=== PATIENT | female | born 1980 | race Caucasian/White ===

== ENCOUNTER → 2018-03-13 09:09 | Outpatient (CLI) | payer OTHER, SELFPAY ==
[2015-03-09 11:20] VITALS: BMI 21.7
[2018-03-13 10:27] LABS: Absolute Lymphocyte Count 1.48 X10^3/ul (0.83-4.51); Absolute Neutrophil Count 3.4 X10^3/uL (2.0-7.7); Basophil# 0.04 X10^3/uL; Basophil% 0.7 % (0-1); Eosinophil# 0.16 X10^3/uL; Eosinophils% 2.9 % (0-5); Hematocrit 41.1 % (37-47); Hemoglobin 13.8 g/dl (12.0-15.0); Lymphocyte # 1.48 X10^3/ul (4.0); Lymphocyte % 26.4 % (19-41); Mean Corp Hgb Conc 33.6 g/gl (32-36); Mean Corpuscular Hgb 29.9 pg (27.0-32.0); Mean Corpuscular Volume 89.2 fL (81-99); Mean Platelet Vol. 9.8 fl (6.2-12.0); Monocyte# 0.51 X10^3/uL; Monocyte% 9.1 % (0-10); Neutrophil # 3.41 X10^3/uL (2.7-7.7); Neutrophil % 60.7 % (47-70); POSITIVE COUNT NO; POSITIVE DIFFERENTIAL NO; POSITIVE MORPHOLOGY NO; Platelet Count 214 K/mm3 (150-450); RBC Distribution Width CV 12.4 % (11.6-14.6); RBC Distribution Width SD 39.7 fl (35.1-43.9); Red Blood Count 4.61 M/mm3 (4.2-5.4); White Blood Count 5.6 K/mm3 (4.4-11.0)
[2018-03-13 11:07] LABS: Anion Gap 11 (5-15); BUN 11 mg/dL (7-18); BUN/Creat Ratio 14.3 RATIO (10-20); Calcium,Total 8.8 mg/dL (8.5-10.1); Chloride 107 mmol/L (98-107); Cholesterol 141 mg/dL (200); Creatinine, Serum 0.77 mg/dL (0.55-1.02); EST Glomerular Filtration Rate 89 mL/min (>60); Est Glom Filt Rate - Afr Amer 108 mL/min (>60); Glucose 81 mg/dL (74-106); High Density Lipoprotein 57 mg/dL; Potassium 4.1 mmol/L (3.5-5.1); Sodium Level 142 mmol/L (136-145); Thyroid Stim Hormone (TSH) 1.19 uIU/mL (0.358-3.74); Triglycerides 84 mg/dL; Very Low Density Lipoprotein 17 mg/dL (5-40)
== END ==
PROVIDERS: Family Provider Family Medicine; PCP Family Medicine; Visit Provider Family Medicine
DX: R00.2 Palpitations (principal)
CPT/HCPCS: 36415; 80048; 80061; 84443; 85025

== ENCOUNTER → 2018-03-28 07:53 | Outpatient (CLI) | payer OTHER, SELFPAY ==
--- NOTE | 2018-03-28 07:59 | ECHOD_ITS ---
Reason For Study: INTERMITTENT PALPITATIONS Procedure This was a 2D Doppler, Color Flow transthoracic echocardiogram. The study was technically difficult. Exam performed in department. Left Ventricle Normal LV size. Left ventricular systolic function is normal. The estimated ejection fraction is 55 %. No evidence for diastolic dysfunction. No regional wall motion abnormalities noted. Right Ventricle Normal RV size. Normal systolic function. Atria Normal left atrium. Normal right atrium. No doppler evidence for ASD. Mitral Valve There is no mitral annular calcification. Normal mitral valve. Trivial mitral valve insufficiency. Tricuspid Valve Normal tricuspid valve. Trivial tricuspid valve insufficiency. Right ventricular systolic pressure estimated to be 25 mmHg. Aortic Valve The aortic valve leaflets are not well visualized. Based upon the 2D echocardiographic images obtain there appears to be mild diffuse thickening. Trivial aortic valve insufficiency. Pulmonic Valve The pulmonic valve is not well visualized. Great Vessels Normal sized aortic root. Pericardium/Pleural No pericardial effusion. MMode/2D Measurements & Calculations LVIDd: 4.7 cm IVSd: 0.75 cm Ao root diam: 2.7 cm LVIDs: 3.6 cm LVPWd: 0.87 cm RVDd: 2.6 cm FS: 23.9 % LAV(MOD-bp): 42.9 ml LA A4 area: 16.0 cm2 LA dimension(2D): 2.8 cm LAV(MOD-bp) Indexed: 24.4 ml/m2 LAV(MOD-sp2): 44.5 ml LAV(MOD-sp4): 40.0 ml RA A4 area: 14.0 cm2 Doppler Measurements & Calculations MV E max michael: 75.9 cm/sec Lat Peak E' Michael: 13.6 cm/sec Med Peak E' Michael: 10.9 cm/sec MV A max michael: 55.4 cm/sec E/E' lat: 5.6 E/E' med: 7.0 MV E/A: 1.4 Ao V2 max: 139.9 cm/sec AI max michael: 448.4 cm/sec LV V1 max: 119.7 cm/sec Ao max P.8 mmHg AI max P.4 mmHg LV V1 max P.7 mmHg AI dec slope: 224.5 cm/sec2 AI P1/2t: 584.9 msec PA V2 max: 91.0 cm/sec TR max michael: 236.4 cm/sec TR max P.5 mmHg Interpretation Summary Left ventricular systolic function is normal. The estimated ejection fraction is 55 %. Trivial mitral valve insufficiency. Trivial tricuspid valve insufficiency. The aortic valve leaflets are not well visualized. Based upon the 2D echocardiographic images obtain there appears to be mild diffuse thickening. Right ventricular systolic pressure estimated to be 25 mmHg. No evidence for diastolic dysfunction. Ordering Physician: Brady Freedman Referring Physician: Brady Freedman Performed By: Roshni Epps, KRISTINA, RVT
== END ==
PROVIDERS: Family Provider Family Medicine; PCP Family Medicine; Referring Provider Family Medicine; Visit Provider Family Medicine
DX: R00.2 Palpitations (principal)
CPT/HCPCS: 93306

== ENCOUNTER → 2018-07-31 09:55 | Outpatient (CLI) | payer OTHER, SELFPAY ==
[2015-03-09 11:20] VITALS: BMI 21.7
[2018-08-01 15:57] LABS: HPV Reflexed? NOT INDICATED
== END ==
PROVIDERS: Family Provider Family Medicine; PCP Family Medicine; Visit Provider Obstetrics & Gynecology
DX: Z12.4 Encounter for screening for malignant neoplasm of cervix (principal)
CPT/HCPCS: 88175; G0145

== ENCOUNTER → 2019-01-08 09:02 | Outpatient (CLI) | payer OTHER, SELFPAY ==
[2015-03-09 11:20] VITALS: BMI 21.7
[2019-01-08 11:10] LABS: Anion Gap 7 (5-15); BUN 14 mg/dL (7-18); BUN/Creat Ratio 14.3 RATIO (10-20); Calcium,Total 8.7 mg/dL (8.5-10.1); Chloride 106 mmol/L (98-107); Creatinine, Serum 0.98 mg/dL (0.55-1.02); EST Glomerular Filtration Rate 67 mL/min (>60); Est Glom Filt Rate - Afr Amer 81 mL/min (>60); Glucose 89 mg/dL (74-106); Magnesium 2.2 mg/dL (1.6-2.6); Potassium 4.4 mmol/L (3.5-5.1); Sodium Level 140 mmol/L (136-145)
== END ==
PROVIDERS: Family Provider Family Medicine; PCP Family Medicine; Referring Provider Family Medicine; Visit Provider Family Medicine
DX: I49.3 Ventricular premature depolarization (principal)
CPT/HCPCS: 36415; 80048; 83735

== ENCOUNTER 2021-03-13 11:24 | Outpatient (CLI) | payer OTHER, SELFPAY ==
[2021-03-13 14:12] LABS: Estradiol 96.8 pg/mL; Follicle Stimulating Hormone 6.4 mIU/mL; Luteinizing Hormone 6.1 mIU/mL; Thyroid Stim Hormone (TSH) 1.31 uIU/mL (0.358-3.74)
[2021-03-15 18:04] LABS: HPV APTIMA, High Risk Negative (Negative)
== END 2021-03-13 23:59 | disposition short-term general hospital (02) ==
LOC: WOBLAB 11:25
PROVIDERS: PCP Family Medicine; Visit Provider Student in an Organized Health Care Education/Training Program
DX: N95.1 Menopausal and female climacteric states (principal); Z12.4 Encounter for screening for malignant neoplasm of cervix
CPT/HCPCS: 36415; 82670; 83001; 83002; 84146; 84443; 87624; 88175; G0145

== ENCOUNTER 2021-04-13 11:58 | Outpatient (CLI) | payer OTHER, SELFPAY ==
--- NOTE | 2021-04-13 10:30 | TISS_PTH ---
PATIENT: MICKY TURNER LOC: [facility] #:[id number] AGE/SX: 40/F ROOM: RE04/13/[address]: Dr. Felicia Freedman DO : 1980 BED: DIS: 04/13/2021 SPEC #: [id number] RECD: 04/13/21 13:44 STATUS: BENJAMIN RESherley #: [id number] GO: 04/13/21 10:[address]: Felicia Freedman DEPT: SURGICAL PATHOLOGY RECD BY: Fadia Ferrari ENTERED: 04/14/21 09:39 SP TYPE: Tissue Bx PJ DR: Dr. Brady Hirsch MD Tissues: TISSUE SURGICALLY REMOVED Procedures: Surgery Specimen Level III HEADER OPERATION: Skin tag removal PRE-OP DIAGNOSIS: Skin tag TISSUE SUBMITTED: Skin tag right vulva MICROSCOPIC DIAGNOSIS Lesion of right vulva, biopsy: Benign fibroepithelial polyp. AM:marily 04/17/2021 MICROSCOPIC DESCRIPTION Slides are reviewed. GROSS DESCRIPTION Received in fixative is one container labeled with the patient's name and designated skin tag. The specimen consists of a piece of burger-light brown skin measuring 0.2 x 0.1 x 0.1 cm. The specimen is totally submitted in one cassette. / SJ:rg 04/14/2021 TC:5 CPT: 78690
== END 2021-04-13 23:59 | disposition home or self-care (01) ==
LOC: LABSPEC 12:05
PROVIDERS: PCP Family Medicine; Visit Provider Student in an Organized Health Care Education/Training Program
DX: L91.8 Other hypertrophic disorders of the skin (principal)
CPT/HCPCS: 88304; 88305

== ENCOUNTER 2021-04-28 09:03 | Outpatient (CLI) | payer OTHER, SELFPAY ==
--- NOTE | 2021-04-28 09:12 | BI_ITS ---
MAMMOGRAPHY - BILATERAL SCREENING REASON FOR EXAM: Female, 40 years old. Routine annual screening examination. PERTINENT HISTORY: Grandmother with breast cancer. TECHNIQUE: Digital bilateral breast katelyn (3D mammographic acquisition) in the CC and MLO projections. 2-D mediolateral oblique (MLO) and craniocaudad (CC) views of both breasts were obtained. CAD: Full Field Digital Mammography with Computer Added Detection was performed. COMPARISON: Comparison is made with prior examination dated 02/22/2017. FINDINGS: Breast Composition: The breasts are extremely dense, which lowers the sensitivity of mammography. There are no dominant masses or suspicious calcifications. No other significant abnormalities are identified. There has been no significant change since the prior study. BI/SCRN MAMM (CAD)W/KATELYN BILAT IMPRESSION: Stable bilateral screening mammogram. Yearly follow-up mammogram recommended. (A) ASSESSMENT CATEGORY: BIRADS Category 1: Negative. A letter regarding these results will be sent to the patient by the facility within 30 days. Approximately 10% of breast cancers are not detected by mammography. A normal mammogram should not delay biopsy of a clinically suspicious abnormality. [id number] Electronically Signed: Reggie Velazquez MD at 10:39 EST ,
== END 2021-04-28 23:59 | disposition home or self-care (01) ==
LOC: OPBI 09:10
PROVIDERS: PCP Family Medicine; Referring Provider Student in an Organized Health Care Education/Training Program; Visit Provider Student in an Organized Health Care Education/Training Program
DX: Z12.31 Encounter for screening mammogram for malignant neoplasm of breast (principal)
CPT/HCPCS: 77063; 77067

== ENCOUNTER → 2022-05-17 | Outpatient (CLI) | payer OTHER, SELFPAY ==
--- NOTE | 2022-05-17 12:11 | BI_ITS ---
MAMMOGRAPHY - BILATERAL SCREENING 3-D TOMOSYNTHESIS REASON FOR EXAM: Female, 41 years old. Routine screening PERTINENT HISTORY: Grandmother with breast cancer.. TECHNIQUE: 2-D mammograms and 3-D Tomosynthesis of the breast (s) were performed. CAD was performed. COMPARISON: 2017 FINDINGS: The breast composition is heterogeneously dense that can obscure small breast masses. Scattered benign calcifications are seen. No dense spiculated masses or suspicious microcalcifications are identified. No architectural distortion is identified. There is no skin thickening or retraction. There has been no significant change since the prior study. BI/SCRN MAMM (CAD)W/KATELYN BILAT IMPRESSION: No mammographic signs of malignancy. Routine yearly mammograms recommended. ASSESSMENT CATEGORY: BIRADS Category 2: Benign. A letter regarding these results will be sent to the patient by the facility within 30 days. FOLLOW UP RECOMMENDATION: Yearly follow up mammogram recommended. (A) Approximately 10% of breast cancers are not detected by mammography. A normal mammogram should not delay biopsy of a clinically suspicious abnormality. Electronically Signed: Hector Gilliland MD at 13:01 EDT ,
== END | disposition home or self-care (01) ==
PROVIDERS: Referring Provider Student in an Organized Health Care Education/Training Program; Visit Provider Student in an Organized Health Care Education/Training Program
DX: Z12.31 Encounter for screening mammogram for malignant neoplasm of breast (principal)
CPT/HCPCS: 77063; 77067